=== PATIENT | female | born 1945 | race Caucasian/White ===

== ENCOUNTER → 2019-02-27 17:15 | Outpatient (CLI) | payer MEDICARE, SELFPAY ==
--- NOTE | 2019-02-27 17:15 | FLU_PTH ---
PATIENT: PALLAVI MAGAÑA LOC: [facility] U#:[id number] AGE/SX: 79/F ROOM: RE02/27/[address]: Dr. Esequiel Valadez MD : 1945 BED: DIS: SPEC #: [id number] RECD: 02/27/19 18:54 STATUS: VANESA CHARLENE #: [id number] JOSE DANIEL: 02/27/19 17:[address]: Esequiel Valadez DEPT: CYTOLOGY RECD BY: Gali Velez Tissues: Thyroid gland, NOS Procedures: Special Stain Group II Surgery Specimen Level IV Cytospin Fluid HEADER OPERATION: FNA thyroid PRE-OP DIAGNOSIS: Nontoxic multinodular goiter TISSUE SUBMITTED: Right neck mass FNA DIAGNOSIS CYTOLOGY Right thyroid, FNA (cytospin and cell block): Consistent with benign colloid nodule. Adequate for evaluation. See comment. RADHA:catie 03/01/19 COMMENT Correlation with clinical, radiologic findings and appropriate follow up are necessary. CYTOLOGY STUDY Slides are reviewed. CYTOLOGY GROSS Received is 35 ml of hazy red fluid labeled with the patient's name and and designated per the requisition as right neck mass. Submitted for cytology preparation including cell block. /CC:cc 02/28/19 TC:5 CPT: 13322, 75076
== END ==
PROVIDERS: Family Provider Otolaryngology; PCP Otolaryngology; Referring Provider Otolaryngology; Visit Provider Otolaryngology
DX: E04.2 Nontoxic multinodular goiter (principal)
CPT/HCPCS: 88108; 88305; 88313

== ENCOUNTER → 2020-12-20 15:07 | Outpatient (CLI) | payer MEDICARE, SELFPAY ==
--- NOTE | 2020-12-20 15:19 | RAD_ITS ---
HISTORY: SPONDLOPATHIES EXAMINATION/TECHNIQUE: XR Pelvis 1 or 2 Views: AP pelvis COMPARISON: 2 view lumbar spine on same day FINDINGS: PELVIC BONES: No displaced fracture, destructive or sclerotic lesions. Note that overlapping bowel shadows may however obscure fine detail. Sacroiliac joints are unremarkable, without erosion or ankylosis. No widening of the pubic symphisis. Mild pubic symphysis degenerative change. Multilevel lower lumbar facet arthropathy, better assessed on lumbar spine radiograph. HIPS: Joint spacing is preserved. No significant osseous proliferation. No displaced femoral fracture SOFT TISSUES: No soft tissue swelling or gas. RAD/Pelvis 1 or 2 Views IMPRESSION: Mild pubic symphysis degenerative change. Multilevel lower lumbar facet arthropathy. No evidence of sacroiliitis or ankylosis at 2156 Reported and signed by: Bryan Rodney MD Electronically Signed: Bryan Rodney MD at 21:55 EDT Tel , Service support ,
--- NOTE | 2020-12-20 15:19 | RAD_ITS ---
STUDY: X-RAY - LUMBAR SPINE REASON FOR EXAM: Female, 75 years old. SPONDYLOPATHIES TECHNIQUE: 3 view(s) of the lumbar spine were obtained. COMPARISON: None FINDINGS: There is straightening of the normal lumbar lordosis. There is no substantial scoliosis. Grade 1 anterolisthesis of L2-L3, L3-L4 (dominant) and L4-L5 due to multilevel facet arthropathy. There is multilevel endplate spondylosis of the lumbar vertebrae. There is multi-level degenerative disc disease with multi-level disc space narrowing. There is no demonstrated fracture. There is atherosclerotic calcification of the abdominal aorta without a demonstrated aneurysm. RAD/Lumbar Spine 2 or 3 Views IMPRESSION: 1. Degenerative disc disease and facet arthropathy, as above. Electronically Signed: Luc Nj MD (Brooks) at 16:01 EDT , Service support ,
[2020-12-20 16:09] LABS: Absolute Lymphocyte Count 2.26 X10^3/uL (0.83-4.51); Absolute Neutrophil Count 5.3 X10^3/uL (2.0-7.7); Basophil# 0.04 X10^3/uL; Basophil% 0.5 % (0-1); Eosinophil# 0.31 X10^3/uL; Eosinophils% 3.6 % (0-5); Hemoglobin 12.2 g/dL (12.0-15.0); Lymphocyte # 2.26 X10^3/ul (0.83-4.51); Lymphocyte % 26.5 % (19-41); Mean Corp Hgb Conc 31.3 g/dL (32-36); Mean Corpuscular Hgb 29.5 pg (27.0-32.0); Mean Corpuscular Volume 94.4 fL (81-99); Mean Platelet Vol. 10.3 fl (6.2-12.0); Monocyte# 0.64 X10^3/uL; Monocyte% 7.5 % (0-10); NRBC Flagged by Analyzer 0 % (0-5); Neutrophil # 5.27 X10^3/uL (2.7-7.7); Neutrophil % 61.7 % (47-70); Platelet Count 329 K/mm3 (150-450); RBC Distribution Width CV 12.4 % (11.6-14.6); RBC Distribution Width SD 42.8 fl (35.1-43.9); Red Blood Count 4.13 M/mm3 (4.2-5.4); White Blood Count 8.5 K/mm3 (4.4-11.0)
[2020-12-20 16:23] LABS: Erythrocyte Sedimentation Rate 11 mm/hr (0-30)
[2020-12-20 16:50] LABS: ALB/GLOB Ratio 1.1 RATIO (0.9-2.4); AST(SGOT) 19 U/L (15-37); Alanine Aminotransfer ALT/SGPT 29 U/L (13-56); Albumin, Serum 3.8 g/dL (3.2-5.0); Alkaline Phosphatase 56 U/L (45-117); Anion Gap 6 (5-15); BUN 17 mg/dL (7-18); BUN/Creat Ratio 20.8 RATIO (10-20); CRP < 2.90 mg/L (0.0-3.0); Calcium,Total 9.4 mg/dL (8.5-10.1); Chloride 102 mmol/L (98-107); Creatinine, Serum 0.82 mg/dL (0.55-1.02); EST Glomerular Filtration Rate 72 mL/min (>60); Est Glom Filt Rate - Afr Amer 88 mL/min (>60); Globulin 3.5 g/dL (2.2-4.2); Glucose 121 mg/dL (74-106); Potassium 3.9 mmol/L (3.5-5.1); Protein, Total 7.3 g/dL (6.4-8.2); Rheumatoid Factor < 10.0 IU/mL (<15); Sodium Level 137 mmol/L (136-145)
[2020-12-24 09:23] LABS: Hepatitis B Surface Antibody Non-Reactive; Hepatitis B Surface Antigen Non-Reactive (Nonreactive); Hepatitis C Antibody Non-Reactive (Nonreactive)
[2020-12-24 13:00] LABS: ANTINUCLEAR ANTIBODIES DIRECT Negative (Negative)
[2020-12-30 16:54] LABS: CCP IgG Antibodies 5 units (0-19); HLA B27 Negative (.)
== END ==
PROVIDERS: PCP Nurse Practitioner Primary Care; Referring Provider Internal Medicine Rheumatology; Visit Provider Internal Medicine Rheumatology
DX: M46.90 Unspecified inflammatory spondylopathy, site unspecified (principal); M47.897 Other spondylosis, lumbosacral region; E11.9 Type 2 diabetes mellitus without complications; I10 Essential (primary) hypertension; E78.5 Hyperlipidemia, unspecified; E04.2 Nontoxic multinodular goiter
CPT/HCPCS: 36415; 72100; 72170; 80053; 81374; 85025; 85652; 86038; 86140; 86200; 86431; 86706; 86803; 87340

== ENCOUNTER → 2020-12-30 10:26 | Outpatient (CLI) | payer MEDICARE, SELFPAY ==
--- NOTE | 2020-12-30 10:30 | RAD_ITS ---
STUDY: X-RAY CHEST REASON FOR EXAM: Female, 75 years old. INTERMEDIATE DRUG THERAPY TECHNIQUE: PA and lateral views of the chest. COMPARISON: None. FINDINGS: The lungs are clear and expanded. There is no demonstrated pleural abnormality. There is mild cardiac enlargement. Normal mediastinum and dana. Normal visualized pulmonary arteries. There is atherosclerotic tortuosity of the aortic arch and descending thoracic aorta. There is demineralization of the osseous structures. Normal visualized ribs, clavicles, and shoulders. There is no demonstrated abnormality of the visualized soft tissue structures of the upper abdomen. RAD/Chest PA and Lateral IMPRESSION: Mild degree of cardiomegaly. No acute abnormality is seen. Electronically Signed: Pankaj Jean MD at 13:27 EDT , Service support ,
[2021-01-03 05:07] LABS: QNTFERON TB Mitogen Value > 10.00 IU/mL (.); QNTFERON TB Nil Value 0.08 IU/mL (.); QNTFERON TB1+ Ag Value 0.12 IU/mL (.); QNTFERON TB2+ Ag Value 0.13 IU/mL (.)
[2021-01-03 08:35] LABS: QNTIFERON TB Positive Criteria Negative (Negative)
== END ==
LOC: RAD 10:28 → LAB 11:02
PROVIDERS: PCP Nurse Practitioner Primary Care; Referring Provider Internal Medicine Rheumatology; Visit Provider Internal Medicine Rheumatology
DX: M46.90 Unspecified inflammatory spondylopathy, site unspecified (principal); M47.897 Other spondylosis, lumbosacral region; E11.9 Type 2 diabetes mellitus without complications; I10 Essential (primary) hypertension; E78.5 Hyperlipidemia, unspecified; E04.2 Nontoxic multinodular goiter
CPT/HCPCS: 36415; 71046; 86480

== ENCOUNTER 2022-10-24 15:35 | Inpatient (IN) | payer MEDICARE, SELFPAY ==
[2022-10-24] VITALS (20 sets, daily range): BP systolic 76–163; BP diastolic 48–96; PULSE 45–93; RESP 16–31; TEMP 36.4–37; O2SAT 92–99; BMI 30.4; BMI 29.5
[2022-10-24] MEDS: 0.9% Normal Saline 1,000 ML 999 ML IV (15:40)
[2022-10-24] MEDS: TICAGRELOR 90 MG TABLET 180 MG PO (15:42)
--- NOTE | 2022-10-24 15:42 | EKG12_ITS ---
Test Reason : CP Blood Pressure : / mmHG Vent. Rate : 048 BPM Atrial Rate : 048 BPM P-R Int : 432 ms QRS Dur : 110 ms QT Int : 496 ms P-R-T Axes : 046 015 090 degrees QTc Int : 443 ms Sinus bradycardia with 1st degree A-V block Minimal voltage criteria for LVH, may be normal variant ( Gorham product ) Inferior infarct , possibly acute T wave abnormality, consider lateral ischemia ACUTE SD / STEMI Consider right ventricular involvement in acute inferior infarct Abnormal ECG Confirmed by JEOVANNY ALFONSO, LYUBOV ([id number]), scientific publications editor SABINO HERRON ([id number]) on 10/26/2022 11:06:44 A M Referred By: Lisa Oliva Confirmed By:ANYI OLIVA MD
--- NOTE | 2022-10-24 15:44 | EDS_ITS ---
HPI History of Present Illness Chief Complaint: Chest Pain Informant: patient Narrative Narrative: Patient presents with some chest discomfort and just not feeling well. This started about 220 this afternoon so about an hour and 15 minutes ago. She states she just did not feel well. She felt just weak and tired. She states her left arm did not feel right. But it was not weak or numb. She does not say that it hurt. But she did have some pressure or heaviness in the upper chest. It was not bad but it was abnormal. Per EMS she was diaphoretic when they first saw her. She has never felt like this before. She is feeling a little bit better now than when she first called EMS. She did receive 4 baby aspirin prior to arrival. She has not had recent bleeding. She has no back pain. She has not been syncopal Patient has history of high blood pressure high cholesterol and diabetes. No known drug allergies Medicines include metoprolol, lisinopril, metformin, glimepiride. It sounds like she is not on actual meds for cholesterol. No recent surgeries, never had heart catheterization or stents. Non-smoker [facility] Medical History (Updated 10/24/22 @ 16:[address] Robert Coleman MD) Diabetes Hypertension Home Medications glipizide 10 mg tablet 10 mg PO DAILY DM 10/24/22 [History Last Taken Unknown] lisinopril 20 mg tablet 20 mg PO DAILY HTN 10/24/22 [History Last Taken Unknown] metformin 500 mg tablet 500 mg PO BID DM 10/24/22 [History Last Taken Unknown] metoprolol tartrate 50 mg tablet 50 mg PO BID HTN 10/24/22 [History Last Taken Unknown] Allergy/AdvReac Type Severity Reaction Status Date / Time No Known Allergies Allergy Verified 10/24/22 15:44 Social History Smoking Status: Never smoker ROS ROS ED ROS Narrative A complete review of systems was performed and is negative except as documented in the history of present illness. Some specific details below. Constitutional: No recent fevers or chills. She does have some generalized weakness and malaise that just started this afternoon. EYE: No discharge, visual complaints, or pain. ENT: No difficulty swallowing. No reflux symptoms. CV: See history of present illness. Respiratory: See history of present illness. GI: No abdominal pain. No nausea vomiting diarrhea. No blood in stool. : No frequency dysuria or hematuria. Musculoskeletal: No recent trauma. No pains. No swelling. No back pain. Skin: No rash. Nondiaphoretic. Neuro: No weakness or numbness. Endocrine: No polyuria or polydipsia. EXAM Physical Exam Narrative Exam Narrative: CONSTITUTIONAL: Patient is nontoxic in appearance. The patient looks comfortable. Work of breathing looks normal. HEENT: No notable trauma. Mucous membranes moist. No facial asymmetry. Patient can close eyes smile stick her tongue out normally. EYES: No conjunctival injection. No proptosis. NECK:No JVD. No stridor. CARDIOVASCULAR: Mildly bradycardic rate. Regular rhythm. No notable murmur. No JVD. However, her blood pressure is good. On the monitor she appears to be in a normal sinus rhythm with bradycardia at about 48-55. There are ST changes on the monitor also. RESPIRATORY: No respiratory distress. Breathing is unlabored. No wheezes. No rhonchi. No rales. No pain with a deep breath. No chest wall tenderness. Saturations are normal at 96% on room air showing no hypoxia. GASTROINTESTINAL: Not distended. Bowel sounds are normal. No tenderness. GENITOURINARY: No tenderness over the bladder. No CVA tenderness. MUSCULOSKELETAL: Atraumatic. No peripheral edema. No cord. No tenderness along the deep venous system. No asymmetry. No distended veins. NEUROLOGICAL: Patient is alert and appropriate. No focal deficit noted. Normal equal strength upper and lower extremities. No sensory changes. Her NIH is actually 0. We are little cautious because she states her left arm just did not feel right and could not define this but I am not seeing any indication of neurologic deficit in this area. SKIN: No noted rashes. No diaphoresis noted at this time but she evidently was diaphoretic when EMS saw her. PSYCHIATRIC: Patient is calm. Mood is appropriate. Const Vital Signs: 10/24/22 15:36 10/24/22 15:40 10/24/22 15:46 Temperature 98.6 F Temperature Source Temporal Pulse Rate 48 L Respiratory Rate 18 18 Blood Pressure 124/96 H 124/96 H Blood Pressure Mean 105 Pulse Ox 96 Oxygen Delivery Method Room Air Nasal Cannula Oxygen Flow Rate (L/min) 2 10/24/22 15:53 10/24/22 15:58 Temperature Temperature Source Pulse Rate 45 L 47 L Respiratory Rate 19 H 16 Blood Pressure 76/48 L 92/81 H Blood Pressure Mean 57 84 Pulse Ox 97 99 Oxygen Delivery Method Nasal Cannula Nasal Cannula Oxygen Flow Rate (L/min) 2 MDM MDM MDM Narrative Medical decision making narrative: Prior to the patient's arrival, we had received a EMS EKG. Based on this EKG we did initiate STEMI team. Dr. Oliva called back promptly. He then came down to see the patient in the emergency department. We are waiting for the cath team to arrive. Plan will be to get her up there. She has already received aspirin. We are giving her Brilinta and heparin. We are doing metabolic work- up but this is pending at this time. Patient CBC is overall normal. Patient's electrolytes are normal. Patient's INR and PTT are normal. Patient's troponin was elevated at 483. My independent interpretation the patient's single view chest x-ray showed no marked process. Mild shallow inspiration. Findings consistent with her prior lumbar surgery. Final read was showing Mild right infrahilar atelectasis or infiltrate. The infiltrate does not go along with her symptoms. We are waiting for cath team to arrive. Patient did have some bradycardic episodes and dropped her pressure once but they responded to fluids. She is maintained being awake and alert. She looks comfortable. I been back in the room multiple times. Toward the end I stayed in the room with her pending cath team arrival. I had seen a couple episodes of ectopy on the monitor. She had one 3 beat V. tach that I think was true V. tach but spontaneously resolved. She did not have symptoms with this. I actually went down to [employer] with her until she was transferred to the table. I then talked to the stull installer at their to update some the interval events. History & Record Review Discussion w/independent historian: EMS personnel Lab Data Labs: Laboratory Results - last 24 hr 10/24/22 15:40 WBC 9.7 RBC 4.20 Hgb 12.5 Hct 39.8 MCV 94.8 MCH 29.8 MCHC 31.4 L RDW Std Deviation 42.7 RDW Coeff of Ron 12.5 Plt Count 417 MPV 11.2 Immature Gran % (Auto) 0.200 Neut % (Auto) 65.6 Lymph % (Auto) 24.8 [place] % (Auto) 7.5 Eos % (Auto) 1.4 Baso % (Auto) 0.5 Absolute Neuts (auto) 6.4 Absolute Lymphs (auto) 2.41 Nucleated RBC % 0 PT 13.7 INR 1.0 APTT 30.4 Sodium 136 Potassium 4.4 Chloride 104 Carbon Dioxide 24.0 Anion Gap 8 BUN 27 H Creatinine 1.75 H Estim Creat Clear Calc 19.03 Est GFR (MDRD) Af Amer 36 L Est GFR (MDRD) Non-Af 30 L BUN/Creatinine Ratio 15.4 Glucose 391 H Calcium 8.9 Troponin I High Sens 483 H* Radiography Diagnostic Testing: Clinical Impression(s) from Imaging Studies Chest X-Ray 10/24/22 15:55 IMPRESSION: Mild right infrahilar atelectasis or infiltrate Electronically Signed: Edward Molina MD at 16:25 EDT , EKG Initial EKG: Comments: I individual interpretation of the patient's EKG done for chest discomfort shows a sinus rhythm with overall bradycardic rate and significant first-degree block with a rate of 48. It may be that she has a second-degree block as I am suspicious there may be other P waves buried in the QRS complex. But at this time she is comfortable and her blood pressure is good. This would not be an uncommon phenomenon with inferior IA. I do not have an old for comparison at this time. Critical Care Time Critical care time (excluding procedures): 30-74 minutes, Discussing w/Patient &/or Family/Acid Strength Inspector, Discussing w/Consultants, Arranging Admission or Transfer, Performing Direct Patient Care at Bedside and - (42 minutes, see note for details.) Discharge Plan Dx/Rx/DC Orders Clinical Impression: Bradycardia, STEMI (ST elevation myocardial infarction), Elevated troponin, Hypotensive episode Disposition Disposition: Acute Care [facility] Discharge Date/Time: 10/24/22 16:00
--- NOTE | 2022-10-24 15:55 | RAD_ITS ---
STUDY: X-RAY CHEST REASON FOR EXAM: Female, 77 years old. Chest pain TECHNIQUE: AP portable COMPARISON: December 31, 2019 FINDINGS: Mild right infrahilar infiltrate or atelectasis. There is no demonstrated pleural abnormality. Normal size heart. Normal mediastinum and dana. Normal visualized pulmonary arteries. Tortuous aortic arch and descending thoracic aorta. Normal visualized thoracic spine. Normal visualized clavicles, and shoulders. Old healed left rib fracture Postsurgical changes of the lumbar spine RAD/Chest 1 View (Portable) IMPRESSION: Mild right infrahilar atelectasis or infiltrate Electronically Signed: Edward Molina MD at 16:25 EDT ,
[2022-10-24 15:57] LABS: Absolute Lymphocyte Count 2.41 X10^3/uL (0.83-4.51); Absolute Neutrophil Count 6.4 X10^3/uL (2.0-7.7); Basophil# 0.05 X10^3/uL; Basophil% 0.5 % (0-1); Eosinophil# 0.14 X10^3/uL; Eosinophils% 1.4 % (0-5); Hematocrit 39.8 % (37-47); Hemoglobin 12.5 g/dL (12.0-15.0); Lymphocyte # 2.41 X10^3/ul (0.83-4.51); Lymphocyte % 24.8 % (19-41); Mean Corp Hgb Conc 31.4 g/dL (32-36); Mean Corpuscular Hgb 29.8 pg (27.0-32.0); Mean Corpuscular Volume 94.8 fL (81-99); Mean Platelet Vol. 11.2 fl (6.2-12.0); Monocyte# 0.73 X10^3/uL; Monocyte% 7.5 % (0-10); NRBC Flagged by Analyzer 0 % (0-5); Neutrophil # 6.37 X10^3/uL (2.7-7.7); Neutrophil % 65.6 % (47-70); Platelet Count 417 K/mm3 (150-450); RBC Distribution Width CV 12.5 % (11.6-14.6); RBC Distribution Width SD 42.7 fl (35.1-43.9); White Blood Count 9.7 K/mm3 (4.4-11.0)
[2022-10-24] MEDS: Heparin Injection (Vial) 5,000 UNIT/ML VIAL 4000 UNIT IV (15:57)
[2022-10-24 16:07] LABS: Prothrombin Time (Protime)PT. 13.7 SECONDS (11.7-14.9)
--- NOTE | 2022-10-24 16:07 | PCM.HP.STD ---
HPI - General General Date of Admission: 10/24/22 Date of Service: 10/24/22 Chief Complaint: Chest pain HPI Narrative PALLAVI MAGAÑA, is a 77 F who presented to the emergency department at [facility] complaining of chest pain and not feeling well. It started at 1420 this afternoon and then again at about 15 minutes prior to presentation. She felt weak and tired and indicated that she had left arm symptoms. She complained of chest pressure/heaviness in the upper chest area. Per EMS she was diaphoretic when they arrived. She never had symptoms like this previously. She received 4 baby aspirin's prior to arrival. EMS EKG was performed and initiated a STEMI team. She was given Brilinta and heparin in the emergency department. She was taken emergently to the [facility] where Vital signs on presentation showed a temperature of 98.6, heart rate 48, blood pressure 124/96, respiratory rate 18 and oxygen saturations were 96% on room air. CBC was unremarkable. Coags are normal. Chemistry panel showed normal electrolytes however BUN and serum creatinine were elevated at 27 and 1.75 respectively baseline is unknown. Serum glucose was 291 and initial troponin was 483. This x-ray showed a mild right infrahilar atelectasis or infiltrate. [facility] Medical History (Updated 10/24/22 @ 18:[address] Mia Patel DO) Diabetes Hyperlipidemia Hypertension Home Medications glipizide 10 mg tablet 10 mg PO DAILY DM 10/24/22 [History Last Taken Unknown] lisinopril 20 mg tablet 20 mg PO DAILY HTN 10/24/22 [History Last Taken Unknown] metformin 500 mg tablet 500 mg PO BID DM 10/24/22 [History Last Taken Unknown] metoprolol tartrate 50 mg tablet 50 mg PO BID HTN 10/24/22 [History Last Taken Unknown] Allergy/AdvReac Type Severity Reaction Status Date / Time No Known Allergies Allergy Verified 10/24/22 15:44 Family History (Updated 10/24/22 @ 18:[address] Mia Patel DO) Other CAD (coronary artery disease) Colon cancer Diabetes Heart disease Hypertension Surgical History (Updated 10/24/22 @ 18:[address] Mia Patel DO) H/O lumbosacral spine surgery History of cataract surgery Social History (Updated 10/24/22 @ 18:[address] Mia Patel DO) household members: family housing: house Smoking Status: Never smoker alcohol intake: never substance use type: does not use ROS Constitutional Constitutional: Reports fatigue and weakness; Denies anorexia, change in weight, chills, fever(s), malaise, night sweats or other Eyes Eyes: Denies blurry vision, change in eye color, change in vision, discharge from eye(s), double vision, erythema, eye pain, loss of vision or other ENT HEENT: Denies abnormal hearing, dysphagia, ear pain, epistaxis, headache(s), hearing loss, nasal congestion, nasal discharge, post nasal drip, sinus pressure, sore throat or other Cardiovascular Cardiovascular: Reports chest pain; Denies claudication, dyspnea on exertion, edema, lightheadedness, orthopnea, palpitations, paroxysmal nocturnal dyspnea, rapid heart rate, syncope or other Respiratory/Chest Respiratory/Chest: Denies cough, dyspnea, excessive phlegm production, hemoptysis, productive cough, shortness of breath at rest, shortness of breath with exertion, wheezing or other Gastrointestinal Gastrointestinal: Denies abdominal pain, coffee ground emesis, constipation, diarrhea, dyspepsia, hematemesis, hematochezia, loose stools, melena, nausea, vomiting or other Genitourinary Genitourinary: Denies burning urination, difficulty urinating, dysuria, hematuria, nocturia, urinary frequency, urinary hesitancy, urinary incontinence, urinary urgency or other Musculoskeletal Musculoskeletal: Reports back pain; Denies arthralgias, joint pain, joint stiffness, joint swelling, myalgias, neck pain or other Neurologic Neurologic: Denies abnormal gait, abnormal speech, confusion, disequilibrium, dizziness, focal weakness, headache(s), numbness, paresthesias, seizure-like activity, seizures, syncope, tingling, tremor(s) or other Psychiatric Psychiatric: Denies anxiety, depression, homicidal ideation, suicidal ideation or other Endocrine Endocrinology: Denies change in body appearance, cold intolerance, excessive sweating, heat intolerance, polydipsia, polyuria or other Hematologic/Lymphatic Hematologic/Lymphatic: Denies anemia, easy bleeding, easy bruising, lymphadenopathy or other Allergic/Immunologic Allergic/Immunologic: Denies rhinitis, hives, eczemia, asthma or other Vital Signs Vital Signs Vital Signs: 10/24/22 15:36 10/24/22 15:40 10/24/22 15:46 Temperature 98.6 F Temperature Source Temporal Pulse Rate 48 L Respiratory Rate 18 18 Blood Pressure 124/96 H 124/96 H Blood Pressure Mean 105 Pulse Ox 96 Oxygen Delivery Method Room Air Nasal Cannula Oxygen Flow Rate (L/min) 2 10/24/22 15:53 10/24/22 15:58 Temperature Temperature Source Pulse Rate 45 L 47 L Respiratory Rate 19 H 16 Blood Pressure 76/48 L 92/81 H Blood Pressure Mean 57 84 Pulse Ox 97 99 Oxygen Delivery Method Nasal Cannula Nasal Cannula Oxygen Flow Rate (L/min) 2 Weight Weight: 70.6 kg Body Mass Index (BMI) 30.4 Physical Exam Const alert, oriented x3, no apparent distress and well nourished Constitutional Narrative: Older white female, overweight, sitting up in bed, sister is at bedside, patient appears comfortable and nontoxic General Appearance: cooperative HEENT normocephalic, head/scalp atraumatic and hearing grossly normal bilaterally HEENT Narrative: Dentures in place, Mallampati 2, no thrush Resp normal respiratory effort, no retractions, no use of accessory muscles and clear to auscultation bilaterally Auscultation: Negative for rales, rhonchi or wheezes Cardio regular rate, regular rhythm, S1 normal heart sound, S2 normal heart sound, no murmurs, no rub, no gallops and no clicks Cardio Narrative: Some ectopy noted GI normal to inspection, nondistended, normoactive bowel sounds, soft to palpation and non-tender Extremity no clubbing, cyanosis or edema Extremity Narrative: Needle pulses are 2+ Skin Skin Narrative: Right radial compression device post catheterization in place, some blood noted surrounding it but no active bleeding Neuro oriented x3, CN's II-XII intact bilaterally, moves all extremities and no focal motor deficits Neuro Narrative: No sensory changes, very minimal proximal weakness but distal strength is good, right wrist and elbow strength not assessed due to catheterization Sensorium / Orientation: awake, alert, oriented to person, oriented to place and oriented to time Speech: speech normal Psych affect normal Psych Narrative: Pleasant, eye contact is good, patient is appropriate Results Lab / Micro Data 10/24/22 15:40 10/24/22 15:40 Labs: Laboratory Results - last 24 hr 10/24/22 15:40: WBC 9.7, RBC 4.20, Hgb 12.5, Hct 39.8, MCV 94.8, MCH 29.8, MCHC 31.4 L, RDW Std Deviation 42.7, RDW Coeff of Ron 12.5, Plt Count 417, MPV 11.2, Immature Gran % (Auto) 0.200, Neut % (Auto) 65.6, Lymph % (Auto) 24.8, [place] % (Auto) 7.5, Eos % (Auto) 1.4, Baso % (Auto) 0.5, Absolute Neuts (auto) 6.4, Absolute Lymphs (auto) 2.41, Nucleated RBC % 0 Assessment & Plan Assessment/Plan (1) STEMI (ST elevation myocardial infarction): (2) Elevated serum creatinine: (3) Hyperglycemia: (4) Elevated troponin: (5) Bradycardia: PLAN: Plan STEMI -Patient taken emergently to the [facility] and 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 twice daily -Cardiology following-appreciate input Bradycardia -Likely related to RCA obstruction -Resolved -Monitor on telemetry Elevated serum creatinine -Baseline serum creatinine is unknown -Aggressive hydration post cath to flush out contrast to avoid contrast-induced nephropathy -Okay to continue his lisinopril for now but may need to hold if creatinine does not improve tomorrow DM-2 with hyperglycemia -Check hemoglobin A1c -Markedly elevated blood glucose on presentation at 391 however this may be related to stress response -Continue to monitor with Accu-Cheks as ordered -Patient is on glipizide 10 mg daily and metformin 500 mg p.o. twice daily at home -Hold oral agents -Sliding scale -Cardiac/carb controlled diet Hypertension -Patient is on lisinopril and metoprolol at baseline however hypotensive on presentation -Reinitiate blood pressure medications as blood pressure and heart rate allows DVT prophylaxis -Lovenox to start tomorrow CODE STATUS -Full code is verified on admission Charges/Coding Visit Charges Inpatient E&M: 50304 Init Hosp L2
[2022-10-24 16:08] LABS: Partial Thromboplast Time 30.4 Seconds (24.1-36.2)
--- NOTE | 2022-10-24 16:13 | ED.RN ---
[facility] gave 324 ASA at 1417
[2022-10-24 16:32] LABS: Anion Gap 8 (5-15); BUN 27 mg/dL (7-18); BUN/Creat Ratio 15.4 RATIO (10-20); Calcium,Total 8.9 mg/dL (8.5-10.1); Chloride 104 mmol/L (98-107); Creatinine, Serum 1.75 mg/dL (0.55-1.02); EST Glomerular Filtration Rate 30 mL/min (>60); Est Glom Filt Rate - Afr Amer 36 mL/min (>60); Estimated Creatinine Clearance 19.03 ml/min; Glucose 391 mg/dL (74-106); Potassium 4.4 mmol/L (3.5-5.1); Sodium Level 136 mmol/L (136-145); Troponin-I HS 483 pg/mL (3.0-54.0)
--- NOTE | 2022-10-24 16:44 | ECHOD_ITS ---
Reason For Study: S/P OH Procedure This was a 2D Doppler, Color Flow transthoracic echocardiogram. Exam performed portable in patient room. Left Ventricle Normal LV size. Mild concentric left ventricular hypertrophy. The estimated ejection fraction is 45 %. Mild segmental systolic dysfunction (see wall motion). Mid-Inferior: Hypokinetic. Basal inferoseptal: Severely Hypokinetic. Infero-Basal: Akinetic. Mid-Posterior: Hypokinetic. Right Ventricle Normal RV size. Normal systolic function. Mitral Valve Bileaflet diffuse mitral valve thickening. Moderate (2+) eccentric mitral valve insufficiency. Tricuspid Valve Normal tricuspid valve. Aortic Valve Trisinus/trileaflet aortic valve. Pulmonic Valve Normal pulmonic valve. Great Vessels Normal aortic root. The pulmonary artery is normal size. Normal inferior vena cava. Pericardium/Pleural No pericardial effusion. MMode/2D Measurements & Calculations LVIDd: 4.7 cm IVSd: 1.4 cm Ao root diam: 3.7 cm LVIDs: 3.8 cm LVPWd: 1.2 cm RVDd: 3.0 cm FS: 19.5 % LAV(MOD-bp): 58.6 ml LVAd ap4: 25.0 cm2 SV(MOD-sp4): 31.5 ml LAV(MOD-bp) Indexed: 36.3 ml/m2 LVLd ap4: 7.4 cm LAV(MOD-sp2): 63.2 ml EDV(MOD-sp4): 70.6 ml LAV(MOD-sp4): 53.1 ml EDV(sp4-el): 72.0 ml LVAs ap4: 16.5 cm2 LVLs ap4: 6.0 cm ESV(MOD-sp4): 39.2 ml ESV(sp4-el): 38.8 ml EF(MOD-sp4): 44.5 % EF(sp4-el): 46.2 % SV(sp4-el): 33.3 ml LA dimension(2D): 3.5 cm LA A4 area: 20.5 cm2 RA A4 area: 12.4 cm2 TAPSE: 2.3 cm Time Measurements MV dec time: 0.20 sec Doppler Measurements & Calculations MV E max reg: 93.3 cm/sec Lat Peak E' Reg: 8.4 cm/sec Med Peak E' Reg: 3.7 cm/sec MV A max reg: 91.0 cm/sec E/E' lat: 11.1 E/E' med: 24.9 MV E/A: 1.0 MV V2 max: 100.7 cm/sec Ao V2 max: 144.2 cm/sec MV max P.1 mmHg MV dec slope: 462.9 cm/sec2 Ao max P.4 mmHg MV V2 mean: 55.3 cm/sec Ao V2 mean: 90.1 cm/sec MV mean P.5 mmHg Ao mean P.9 mmHg MV V2 VTI: 32.1 cm Ao V2 VTI: 30.9 cm AV (velocity ratio): 0.88 LV V1 max: 119.1 cm/sec MR max reg: 619.9 cm/sec PA V2 max: 92.2 cm/sec LV V1 max P.7 mmHg MR max P.7 mmHg PA V2 mean: 74.0 cm/sec LV V1 mean P.0 mmHg MR mean reg: 481.0 cm/sec LV V1 mean: 80.2 cm/sec MR mean P.5 mmHg LV V1 VTI: 27.3 cm MR VTI: 241.6 cm ECHO/Echo Complete Interpretation Summary Normal LV size. The estimated ejection fraction is 45 %. Mild segmental systolic dysfunction (see wall motion). Mild concentric left ventricular hypertrophy. Moderate (2+) eccentric mitral valve insufficiency. Ordering Physician: Lisa Oliva Referring Physician: Lisa Oliva Performed By: Naheed Martines RCS
--- NOTE | 2022-10-24 16:45 | CON.PCM.CA_ITS ---
Assessment & Plan Assessment/Plan (1) STEMI (ST elevation myocardial infarction): QUALIFIERS: Involved coronary artery: right coronary artery Qualified Code(s): I21.11 - ST elevation (STEMI) myocardial infarction involving right coronary artery PLAN: Treated with drug-eluting stent to the RCA. We will keep the patient on aspirin, Brilinta, statin. She is already on lisinopril and beta-renate that will be continued. We will hold the metformin for 48 hours. 2D echo to be checked on Wednesday. Patient is being admitted to the CCU for further management of her inferior STEMI. HPI Consult Data Date of Consult: 10/24/22 HPI Narrative Reason for Consultation: STEMI HPI Narrative: PALLAVI MAGAÑA, is a 77 F who presents with chest pressure and because she was just not feeling right. EKG done outside the hospital with the paramedics revealed inferior STEMI and a STEMI alert was called. Patient was evaluated in the emergency room and was brought emergently to the cardiac Social Sciences Chair. She underwent coronary angiography which revealed 99% stenosis in the mid RCA that was treated with drug-eluting stents. Patient is doing well at the end of the procedure. Review of systems: All systems reviewed. All else is negative except as in HPI PFSH Medical History (Updated 10/24/22 @ 16:[address] Lisa Oliva MD) Diabetes Hypertension Home Medications glipizide 10 mg tablet 10 mg PO DAILY DM 10/24/22 [History Last Taken Unknown] lisinopril 20 mg tablet 20 mg PO DAILY HTN 10/24/22 [History Last Taken Unknown] metformin 500 mg tablet 500 mg PO BID DM 10/24/22 [History Last Taken Unknown] metoprolol tartrate 50 mg tablet 50 mg PO BID HTN 10/24/22 [History Last Taken Unknown] Allergy/AdvReac Type Severity Reaction Status Date / Time No Known Allergies Allergy Verified 10/24/22 15:44 Social History Smoking Status: Never smoker Physical Exam Const alert and oriented x3 HEENT normocephalic Eyes no scleral icterus Resp normal respiratory effort Cardio regular rate Skin no rashes or lesions noted Psych mental status grossly normal Risk Stratification Risk Stratification Applicable: No Charges/Coding Visit Charges Inpatient E&M: 98767 Init Hosp L2 Objective Data Vital Signs: Vital Signs Temp Pulse Resp BP Pulse Ox O2 Del Method O2 Flow Rate 98.6 F 47 L 16 92/81 H 99 Nasal Cannula 2 10/24/22 15:40 10/24/22 15:58 10/24/22 15:58 10/24/22 15:58 10/24/22 15:58 10/24/22 15:58 10/24/22 15:58 Oxygen Flow Rate (L/min) 2 Oxygen Delivery Method Nasal Cannula Weight: 155 lb 10.342 oz Body Mass Index (BMI) 30.4 Lab / Micro Data 10/24/22 15:40 10/24/22 15:40 Labs: Laboratory Results - last 24 hr 10/24/22 15:40: WBC 9.7, RBC 4.20, Hgb 12.5, Hct 39.8, MCV 94.8, MCH 29.8, MCHC 31.4 L, RDW Std Deviation 42.7, RDW Coeff of Ron 12.5, Plt Count 417, MPV 11.2, Immature Gran % (Auto) 0.200, Neut % (Auto) 65.6, Lymph % (Auto) 24.8, Mccreary % (Auto) 7.5, Eos % (Auto) 1.4, Baso % (Auto) 0.5, Absolute Neuts (auto) 6.4, Absolute Lymphs (auto) 2.41, Nucleated RBC % 0, PT 13.7, INR 1.0, APTT 30.4, Sodium 136, Potassium 4.4, Chloride 104, Carbon Dioxide 24.0, Anion Gap 8, BUN 27 H, Creatinine 1.75 H, Estim Creat Clear Calc 19.03, Est GFR (MDRD) Af Amer 36 L, Est GFR (MDRD) Non-Af 30 L, BUN/Creatinine Ratio 15.4, Glucose 391 H, Calcium 8.9, Troponin I High Sens 483 H* Cardiology Labs/Tests 10/24/22 15:40: WBC 9.7, RBC 4.20, Hgb 12.5, Hct 39.8, MCV 94.8, MCH 29.8, MCHC 31.4 L, Plt Count 417, MPV 11.2, Immature Gran % (Auto) 0.200, Neut % (Auto) 65.6, Lymph % (Auto) 24.8, Mccreary % (Auto) 7.5, Eos % (Auto) 1.4, Baso % (Auto) 0.5, Absolute Neuts (auto) 6.4, Nucleated RBC % 0, PT 13.7, INR 1.0, APTT 30.4, Sodium 136, Potassium 4.4, Chloride 104, Carbon Dioxide 24.0, Anion Gap 8, BUN 27 H, Creatinine 1.75 H, Est GFR (MDRD) Af Amer 36 L, Est GFR (MDRD) Non-Af 30 L , BUN/Creatinine Ratio 15.4, Glucose 391 H, Calcium 8.9 Rhythm: EKG: ECHO: Stress Test: Cardiac Cath: PCI: CT Surgery: Holter monitor: EPS: PPM: CXR: Chest CT Scan: Radiography Diagnostic Testing: Radiology Impression Chest X-Ray 10/24/22 15:55 IMPRESSION: Mild right infrahilar atelectasis or infiltrate Electronically Signed: Edward Molina MD at 16:25 EDT ,
--- NOTE | 2022-10-24 16:45 | EKG12_ITS ---
Test Reason : AM EKG Blood Pressure : / mmHG Vent. Rate : 061 BPM Atrial Rate : 061 BPM P-R Int : 130 ms QRS Dur : 092 ms QT Int : 482 ms P-R-T Axes : 000 -46 -72 degrees QTc Int : 485 ms Normal sinus rhythm Left axis deviation Inferior infarct , age undetermined ST & T wave abnormality, consider lateral ischemia Abnormal ECG Confirmed by CRISTAL ALFONSO, JULIANO ([id number]), supervising film or videotape editor SABINO HERRON ([id number]) on 10/27/2022 12:21:10 PM Referred By: Lisa Oliva Confirmed By:JULIANO BEE MD
[2022-10-24] MEDS: 0.9% Normal Saline 1,000 ML 75 ML IV (17:00)
--- NOTE | 2022-10-24 17:19 | CL.I_ITS ---
Patient Name: PALLAVI MAGAÑA Study Date: 10/24/2022 Performing: Gary Oliva MD Ht: 60 inches 152.4 cm : 1945 Wt: 155.8 lbs 70.6 kg Age: 77 Gender: female BSA: 1.68 PROCEDURE(S) PERFORMED DC02-(77059)LHC/COR IC16-([id number]/[id number])AMI, RAJANI OR PTCA, ARTERY/GRAFT, SINGLE VESSEL CLINICAL PROFILE AND CO-MORBIDITIES Indications: ACS <= 24 hrs Heart Failure: None Stress/Imaging Stress/Image Study Performed: No CAD Presentations: STEMI. Symptom onset Date/Time: 10/24/22 Time Not Available CONCLUSIONS CAD as described. No significant . Successful PCI of mRCA with RAJANI RECOMMENDATIONS ASA Indefinitley Brilinta for at least 12 months Medical therapy for rest of the CAD at this time DESCRIPTION OF PROCEDURE The patient arrived to the procedure lab. The risks and benefits of the procedure as well as a full description of our services here and lack of surgical backup were fully explained to the patient and/or their significant other prior to the catheterization. The Timeout was completed, verifying the correct patient and procedure. The patient's procedural site was prepped and draped in the usual fashion. Local anesthetic was given subcutaneously to right radial region with Lidocaine 2%. Using a modified Seldinger technique, arterial access was obtained via the right radial artery, a 6Fr sheath was inserted.. LV to AO pullback pressures were then recorded. Left Coronary Artery selective angiography was performed in multiple views using a 5 Fr. JL3.5 catheter JR 4 Guide catheter was inserted and engaged into the RCA. BMW Guide wire was advanced to the RCA. 2.5x12 Emerge Balloon catheter was inserted. Balloon catheter was advanced across lesion in the right coronary, mid. PTCA balloon inflated at 6 atms for 15 secs. Angiogram performed post balloon dilatation. 3.5x18 Resolute Drug Eluting stent was inserted. Drug Eluting stent was advanced across the lesion in the right coronary, mid. Angiogram performed post stent deployment. 3.5x12 Resolute Drug Eluting stent was inserted. Drug Eluting stent was advanced across the lesion in the right coronary, mid. Angiogram performed post stent deployment. The arterial sheath was pulled and a TR Band was applied for hemostasis. 10cc of air CORONARY ANGIOGRAPHY DOMINANCE: Right Dominant LEFT HEART ASSESSMENT LEFT MAIN: 20 % Stenosis in the distal portion LEFT ANTERIOR DESCENDING ARTERY: PROX LAD: 60 % Stenosis, eccentric, calcified CIRCUMFLEX ARTERY: mild diffuse disease. Hazy lesion in the ostial LCx that appears to be mild to moderate. RIGHT CORONARY ARTERY: MID RCA: 99 % Stenosis, 80 % Stenosis VALVE FINDINGS: No Aortic Valve Stenosis INTERVENTION INFORMATION LESION SITE: RCA (Mid) Lesion Complexity: High/C, chronic total occlusion: No, lesion at bifurcation: No, thrombus present: Yes, lesion length: 17 mm, culprit lesion: Yes, Previously treated lesion: No Pre Stenosis: 99 % Pre intervention JESSICA flow: 1 PROCEDURE: Drug Eluting Stent with pre dilatation. Post Stenosis: 0 % Post intervention JESSICA flow: 3 Lesion Devices: Zayas .014 190cm BMW [place] Straight Cordis 6 Fr JR4 100cm Guide Catheter Benjamin Sci EMERGE MR 2.50x12 BALLOON Medtronic Resolute Vanduser RX RAJANI 3.5x18 Medtronic Resolute Isac RX RAJANI 3.5x12 COMPLICATIONS No Complications PROCEDURE MEDICATIONS Versed 1 mg IV Versed 1 mg IV Oxygen: 2 L/min via nasal cannula Heparin given IA 10/24/2022 16:13:22 Verapamil 2.5mg, Ntg 50mcgs, 3000 units of Heparin given IA 10/24/2022 16:13:22 SUMMARY OF HEMODYNAMIC DATA Time AIR REST ECG 16:07:19 AO 113/72 (98) SA 16:13:59 LV 100/4, 9 16:15:00 LV 97/4, 9 16:15:08 LVp 102/0, 12 16:15:16 AOp 97/59 (76) 16:15:23 AO 91/56 (72) 16:15:54 AO 115/64 (88) 16:19:23 Signed By Gary Oliva MD On 10/24/2022 17:18:30 Gary Oliva MD
--- NOTE | 2022-10-24 17:25 | CASEMGMT ---
KENNEDY PANTOJA DEMI CHEF CM to room to meet with patient for initial transition planning/care coordination assessment. RN KIT introduced self and role at [facility].? Pt voices understanding and consents to assessment at this time.? Pt resting in bed in no distress at this time.? Pt is A/O at this time and answers all questions appropriately.?? Care providers, pharmacy, and demographics verified/updated at this time. PCP: VINNIE Camacho Specialists: Dr Bell @ [facility] Preferred Pharmacy: [facility] Insurance: [facility] A/B Prescription Benefit:? Pt is not sure if has RX benefits. Provided w/Brilinta 30-day savings card and instructed on use. Discussed importance of taking med as prescribed and to f/u with cardiology if refills are not affordable to discuss other possible more affordable options. Living Will/HPOA:? Pt thinks she may have done a LW but not sure and does not think she has completed HCPOA LNOK: 5 children Living Arrangements: Lives w/son in 2-story home w/3-4 steps to enter. FFSU. Indep @ baseline w/ADL's. Dtr's assist w/home mgnt tasks/cleaning. Pt usually gets own groceries/family helps as needed. Pt manages her own medications. Transportation: family DME: States has the following DME available: shower chair, cane, walker. Pt states does not usually use AD to ambulate. Also has/uses an adjustable bed. ? Pt states no need for further DME at this time.? HHC/SNF: No hx of either. Denies need for either. Pt wishes to return home and states has no concerns with going home at time of discharge.? CM to follow for any discharge planning/needs.? Pt voices no further concerns/needs at this time.? Advised pt to ask for CM if any further questions/concerns/needs arise.? Voices understanding. PLAN: ?Home w/family support and discharge plans in place. Cony PRABHAKAR RN, CM
[2022-10-24] MEDS: Atorvastatin Calcium 40 MG Tablet PO (22:04)
[2022-10-24] MEDS: Metoprolol Tartrate 50 MG Tablet PO (22:04)
[2022-10-24] MEDS: Heparin Injection (Vial) 5,000 UNIT/ML VIAL 5000 UNIT SC (22:05)
[2022-10-24] MEDS: TICAGRELOR 90 MG TABLET PO (22:05)
[2022-10-25] VITALS (13 sets, daily range): BP systolic 92–138; BP diastolic 44–75; PULSE 57–76; RESP 14–16; TEMP 36.4; O2SAT 96–100; BMI 28.8
[2022-10-25] MEDS: Heparin Injection (Vial) 5,000 UNIT/ML VIAL 5000 UNIT SC ×3 (05:06→22:14)
[2022-10-25 05:17] LABS: Basophil# 0.04 X10^3/uL; Basophil% 0.3 % (0-1); Eosinophil# 0.02 X10^3/uL; Eosinophils% 0.1 % (0-5); Hematocrit 37.2 % (37-47); Hemoglobin 11.7 g/dL (12.0-15.0); Lymphocyte % 11.1 % (19-41); Mean Corp Hgb Conc 31.5 g/dL (32-36); Mean Corpuscular Hgb 29.8 pg (27.0-32.0); Mean Corpuscular Volume 94.7 fL (81-99); Mean Platelet Vol. 10.5 fl (6.2-12.0); Monocyte# 0.83 X10^3/uL; Monocyte% 6.2 % (0-10); NRBC Flagged by Analyzer 0 % (0-5); Neutrophil # 11.04 X10^3/uL (2.7-7.7); Neutrophil % 81.9 % (47-70); Platelet Count 329 K/mm3 (150-450); RBC Distribution Width CV 12.3 % (11.6-14.6); RBC Distribution Width SD 42.3 fl (35.1-43.9); Red Blood Count 3.93 M/mm3 (4.2-5.4); White Blood Count 13.5 K/mm3 (4.4-11.0)
[2022-10-25 05:38] LABS: Phosphorus 2.6 mg/dL (2.5-4.9)
[2022-10-25 05:42] LABS: ALB/GLOB Ratio 0.9 RATIO (0.9-2.4); AST(SGOT) 310 U/L (15-37); Alanine Aminotransfer ALT/SGPT 62 U/L (13-56); Alkaline Phosphatase 76 U/L (45-117); Anion Gap 6 (5-15); BUN 19 mg/dL (7-18); BUN/Creat Ratio 19.1 RATIO (10-20); Calcium,Total 8.4 mg/dL (8.5-10.1); Chloride 110 mmol/L (98-107); Cholesterol 221 mg/dL (200); EST Glomerular Filtration Rate 57 mL/min (>60); Est Glom Filt Rate - Afr Amer 69 mL/min (>60); Estimated Creatinine Clearance 47.43 ml/min; Globulin 3.5 g/dL (2.2-4.2); Glucose 245 mg/dL (74-106); High Density Lipoprotein 39 mg/dL; Magnesium 1.8 mg/dL (1.6-2.6); Potassium 3.7 mmol/L (3.5-5.1); Protein, Total 6.5 g/dL (6.4-8.2); Sodium Level 139 mmol/L (136-145); Thyroid Stim Hormone (TSH) 0.62 uIU/mL (0.358-3.74); Triglycerides 140 mg/dL; Very Low Density Lipoprotein 28 mg/dL (5-40)
[2022-10-25] MEDS: Aspirin E.C. 81 MG Tablet PO (08:21)
[2022-10-25] MEDS: Metoprolol Tartrate 50 MG Tablet PO ×2 (08:21→22:13)
[2022-10-25] MEDS: glipiZIDE 10 MG Tablet PO (08:21)
[2022-10-25] MEDS: TICAGRELOR 90 MG TABLET PO ×2 (08:21→22:13)
[2022-10-25] MEDS: Lisinopril 20 MG Tablet PO (08:22)
[2022-10-25] MEDS: Insulin Lispro 100 UNIT/ML INSULN.PEN SC ×3 (08:46→15:08)
[2022-10-25] MEDS: Insulin Glargine-YFGN 100 UNIT/ML Pen 10 UNIT SC (08:46)
[2022-10-25 08:56] LABS: Hemoglobin A1c 7.8 % (3.8-5.6)
[2022-10-25 11:21] LABS: Bedside Glucose 186 mg/dL (74-106)
--- NOTE | 2022-10-25 14:53 | PN.HOSP_ITS ---
Reason for Visit Reason for Visit: Chest pain Subjective Subjective Patient states she had no issues overnight. No arrhythmias on telemetry. She indicates she did not sleep well but did not expect to being in the hospital. Objective Data Objective Data Vital Signs: Vital Signs Temp Pulse Resp BP Pulse Ox O2 Del Method O2 Flow Rate 97.5 F L 61 14 136/75 H 100 Room Air 2 10/25/22 11:21 10/25/22 11:21 10/25/22 11:21 10/25/22 11:21 10/25/22 11:21 10/25/22 11:21 10/24/22 22:00 Oxygen Flow Rate (L/min) 2 Oxygen Delivery Method Room Air Weight: 64.8 kg Body Mass Index (BMI) 28.8 Intake & Output: Intake and Output for Last 24 Hours 10/23/22 10/24/22 10/25/22 23:59 23:59 23:59 Intake Total 1555 / 1755 600 / 600 Output Total 250 / 250 Balance 1305 / 1505 600 / 600 Lab / Micro Data 10/25/22 05:05 10/25/22 05:05 Labs: Laboratory Results - last 24 hr 10/24/22 15:40: WBC 9.7, RBC 4.20, Hgb 12.5, Hct 39.8, MCV 94.8, MCH 29.8, MCHC 31.4 L, RDW Std Deviation 42.7, RDW Coeff of Ron 12.5, Plt Count 417, MPV 11.2, Immature Gran % (Auto) 0.200, Neut % (Auto) 65.6, Lymph % (Auto) 24.8, Dickenson % (Auto) 7.5, Eos % (Auto) 1.4, Baso % (Auto) 0.5, Absolute Neuts (auto) 6.4, Absolute Lymphs (auto) 2.41, Nucleated RBC % 0, PT 13.7, INR 1.0, APTT 30.4, Sodium 136, Potassium 4.4, Chloride 104, Carbon Dioxide 24.0, Anion Gap 8, BUN 27 H, Creatinine 1.75 H, Estim Creat Clear Calc 19.03, Est GFR (MDRD) Af Amer 36 L, Est GFR (MDRD) Non-Af 30 L, BUN/Creatinine Ratio 15.4, Glucose 391 H, Calcium 8.9, Troponin I High Sens 483 H* 10/25/22 05:05: WBC 13.5 H, RBC 3.93 L, Hgb 11.7 L, Hct 37.2, MCV 94.7, MCH 29.8, MCHC 31.5 L, RDW Std Deviation 42.3, RDW Coeff of Ron 12.3, Plt Count 329, MPV 10.5, Immature Gran % (Auto) 0.400, Neut % (Auto) 81.9 H, Lymph % (Auto) 11.1 L, Dickenson % (Auto) 6.2, Eos % (Auto) 0.1, Baso % (Auto) 0.3, Absolute Neuts (auto) 11.0 H, Absolute Lymphs (auto) 1.50, Nucleated RBC % 0, Sodium 139, Potassium 3.7, Chloride 110 H, Carbon Dioxide 23.0, Anion Gap 6, BUN 19 H, Creatinine 1.00, Estim Creat Clear Calc 47.43, Est GFR (MDRD) Af Amer 69, Est GFR (MDRD) Non-Af 57 L, BUN/Creatinine Ratio 19.1, Glucose 245 H, Hemoglobin A1c 7.8 H, Calcium 8.4 L, Phosphorus 2.6, Magnesium 1.8, Total Bilirubin 0.70, AST 310 H, ALT 62 H, Alkaline Phosphatase 76, Total Protein 6.5, Albumin 3.0 L, Globulin 3.5, Albumin/Globulin Ratio 0.9, Triglycerides 140, Cholesterol 221 H, LDL Cholesterol 154 H, VLDL Cholesterol 28, HDL Cholesterol 39 L, TSH 0.62 10/25/22 11:00: POC Glucose 186 H Radiography Diagnostic Testing: Radiology Impression Chest X-Ray 10/24/22 15:55 IMPRESSION: Mild right infrahilar atelectasis or infiltrate Electronically Signed: Edward Molina MD at 16:25 EDT , Physical Exam Const alert, oriented x3, no apparent distress and well nourished Constitutional Narrative: Older white female, overweight, sitting up in bed, patient appears comfortable and nontoxic General Appearance: cooperative HEENT normocephalic, head/scalp atraumatic and hearing grossly normal bilaterally HEENT Narrative: Dentures in place, Mallampati 2, no thrush Resp normal respiratory effort, no retractions, no use of accessory muscles and clear to auscultation bilaterally Auscultation: Negative for rales, rhonchi or wheezes Cardio regular rate, regular rhythm, S1 normal heart sound, S2 normal heart sound, no murmurs, no rub, no gallops and no clicks GI normal to inspection, nondistended, normoactive bowel sounds, soft to palpation and non-tender Extremity no clubbing, cyanosis or edema Extremity Narrative: Pedal pulses are 2+, right wrist is healing well with mild tenderness at catheterization site Neuro oriented x3, moves all extremities and no focal motor deficits Speech: speech normal Psych affect normal Psych Narrative: Pleasant, eye contact is good, patient is appropriate Assessment & Plan Assessment/Plan (1) STEMI (ST elevation myocardial infarction): QUALIFIERS: Involved coronary artery: right coronary artery Qualified Code(s): I21.11 - ST elevation (STEMI) myocardial infarction involving right coronary artery (2) Elevated serum creatinine: (3) Hyperglycemia: (4) Elevated troponin: (5) Bradycardia: (6) SAULO (acute kidney injury): (7) Leukocytosis: PLAN: Plan STEMI -Patient taken emergently to the [facility] and RCA 99% obstruction noted with an 80% lesion just proximal to the occlusion--> RAJANI x2 to RCA -Echocardiogram pending will be done tomorrow morning -Total cholesterol 221/LDL 154/HDL 39/triglycerides 140 -Hemoglobin A1c is 7.8 -Continue aspirin 81 mg daily -Continue atorvastatin 80 mg nightly -Cardiac rehab consultation -Dietitian is following and has given diet information -Continue home beta-renate and PRISCILLA inhibitor -Brilinta 90 mg p.o. twice daily -Cardiology following-appreciate input Bradycardia -Resolved SAULO -Serum creatinine 1.75 on admission -Serum creatinine is 1.0 today and I think therefore we can diagnose her with acute kidney injury on presentation -SALUO has now resolved -Repeat BMP in a.m. Leukocytosis -No signs of infection -Suspect reactive -Repeat CBC in a.m. DM-2 with hyperglycemia -A1c is 7.8 and control could improve -Continue glipizide -Hold metformin with recent contrast dosing -Add Lantus 10 units as fasting blood sugar this morning was markedly elevated at greater than 200 -May addition of more oral medication or basal insulin at discharge -Hold oral agents -Sliding scale -Cardiac/carb controlled diet Hypertension -Continue metoprolol -Continue lisinopril Hyperlipidemia -Total cholesterol was greater than 200 with an LDL of 154 -Continue atorvastatin and will prescribe at discharge DVT prophylaxis -Lovenox subcu daily CODE STATUS -Full code is verified on admission Charges/Coding Visit Charges Inpatient E&M: 05877 Subs Hosp L2
[2022-10-25 15:27] LABS: Bedside Glucose 166 mg/dL (74-106)
--- NOTE | 2022-10-25 15:33 | PCM.PN.CARD ---
Subjective Subjective Doing well. Denies any cardiac complaints Objective Data Vital Signs: Vital Signs Temp Pulse Resp BP Pulse Ox O2 Del Method O2 Flow Rate 97.5 F L 61 14 136/75 H 100 Room Air 2 10/25/22 11:21 10/25/22 11:21 10/25/22 11:21 10/25/22 11:21 10/25/22 11:21 10/25/22 11:21 10/24/22 22:00 Oxygen Flow Rate (L/min) 2 Oxygen Delivery Method Room Air Weight: 142 lb 13.753 oz Body Mass Index (BMI) 28.8 Intake & Output: Intake and Output for Last 24 Hours 10/23/22 10/24/22 10/25/22 23:59 23:59 23:59 Intake Total 1555 / 1755 600 / 600 Output Total 250 / 250 Balance 1305 / 1505 600 / 600 Lab / Micro Data 10/25/22 05:05 10/25/22 05:05 Labs: Laboratory Results - last 24 hr 10/24/22 15:40: WBC 9.7, RBC 4.20, Hgb 12.5, Hct 39.8, MCV 94.8, MCH 29.8, MCHC 31.4 L, RDW Std Deviation 42.7, RDW Coeff of Ron 12.5, Plt Count 417, MPV 11.2, Immature Gran % (Auto) 0.200, Neut % (Auto) 65.6, Lymph % (Auto) 24.8, Montague % (Auto) 7.5, Eos % (Auto) 1.4, Baso % (Auto) 0.5, Absolute Neuts (auto) 6.4, Absolute Lymphs (auto) 2.41, Nucleated RBC % 0, PT 13.7, INR 1.0, APTT 30.4, Sodium 136, Potassium 4.4, Chloride 104, Carbon Dioxide 24.0, Anion Gap 8, BUN 27 H, Creatinine 1.75 H, Estim Creat Clear Calc 19.03, Est GFR (MDRD) Af Amer 36 L, Est GFR (MDRD) Non-Af 30 L, BUN/Creatinine Ratio 15.4, Glucose 391 H, Calcium 8.9, Troponin I High Sens 483 H* 10/25/22 05:05: WBC 13.5 H, RBC 3.93 L, Hgb 11.7 L, Hct 37.2, MCV 94.7, MCH 29.8, MCHC 31.5 L, RDW Std Deviation 42.3, RDW Coeff of Ron 12.3, Plt Count 329, MPV 10.5, Immature Gran % (Auto) 0.400, Neut % (Auto) 81.9 H, Lymph % (Auto) 11.1 L, Mont[place] % (Auto) 6.2, Eos % (Auto) 0.1, Baso % (Auto) 0.3, Absolute Neuts (auto) 11.0 H, Absolute Lymphs (auto) 1.50, Nucleated RBC % 0, Sodium 139, Potassium 3.7, Chloride 110 H, Carbon Dioxide 23.0, Anion Gap 6, BUN 19 H, Creatinine 1.00, Estim Creat Clear Calc 47.43, Est GFR (MDRD) Af Amer 69, Est GFR (MDRD) Non-Af 57 L, BUN/Creatinine Ratio 19.1, Glucose 245 H, Hemoglobin A1c 7.8 H, Calcium 8.4 L, Phosphorus 2.6, Magnesium 1.8, Total Bilirubin 0.70, AST 310 H, ALT 62 H, Alkaline Phosphatase 76, Total Protein 6.5, Albumin 3.0 L, Globulin 3.5, Albumin/Globulin Ratio 0.9, Triglycerides 140, Cholesterol 221 H, LDL Cholesterol 154 H, VLDL Cholesterol 28, HDL Cholesterol 39 L, TSH 0.62 10/25/22 11:00: POC Glucose 186 H 10/25/22 15:06: POC Glucose 166 H Cardiology Labs/Tests 10/24/22 15:40: WBC 9.7, RBC 4.20, Hgb 12.5, Hct 39.8, MCV 94.8, MCH 29.8, MCHC 31.4 L, Plt Count 417, MPV 11.2, Immature Gran % (Auto) 0.200, Neut % (Auto) 65.6, Lymph % (Auto) 24.8, [place] % (Auto) 7.5, Eos % (Auto) 1.4, Baso % (Auto) 0.5, Absolute Neuts (auto) 6.4, Nucleated RBC % 0, PT 13.7, INR 1.0, APTT 30.4, Sodium 136, Potassium 4.4, Chloride 104, Carbon Dioxide 24.0, Anion Gap 8, BUN 27 H, Creatinine 1.75 H, Est GFR (MDRD) Af Amer 36 L, Est GFR (MDRD) Non-Af 30 L, BUN/Creatinine Ratio 15.4, Glucose 391 H, Calcium 8.9 10/25/22 05:05: WBC 13.5 H, RBC 3.93 L, Hgb 11.7 L, Hct 37.2, MCV 94.7, MCH 29.8, MCHC 31.5 L, Plt Count 329, MPV 10.5, Immature Gran % (Auto) 0.400, Neut % (Auto) 81.9 H, Lymph % (Auto) 11.1 L, [place] % (Auto) 6.2, Eos % (Auto) 0.1, Baso % (Auto) 0.3, Absolute Neuts (auto) 11.0 H, Nucleated RBC % 0, Sodium 139, Potassium 3.7, Chloride 110 H, Carbon Dioxide 23.0, Anion Gap 6, BUN 19 H, Creatinine 1.00, Est GFR (MDRD) Af Amer 69, Est GFR (MDRD) Non-Af 57 L, BUN/Creatinine Ratio 19.1, Glucose 245 H, Hemoglobin A1c 7.8 H, Calcium 8.4 L, Phosphorus 2.6, Magnesium 1.8, Total Bilirubin 0.70, Triglycerides 140, Cholesterol 221 H, LDL Cholesterol 154 H, VLDL Cholesterol 28, HDL Cholesterol 39 L Rhythm: EKG: ECHO: Stress Test: Cardiac Cath: PCI: CT Surgery: Holter monitor: EPS: PPM: CXR: Chest CT Scan: Radiography Diagnostic Testing: Radiology Impression Chest X-Ray 10/24/22 15:55 IMPRESSION: Mild right infrahilar atelectasis or infiltrate Electronically Signed: Edward Molina MD at 16:25 EDT , Physical Exam Const alert and oriented x3 HEENT normocephalic Eyes no scleral icterus Resp normal respiratory effort Cardio regular rate Skin no rashes or lesions noted Psych mental status grossly normal Assessment & Plan Assessment/Plan (1) STEMI (ST elevation myocardial infarction): QUALIFIERS: Involved coronary artery: right coronary artery Qualified Code(s): I21.11 - ST elevation (STEMI) myocardial infarction involving right coronary artery PLAN: Treated with drug-eluting stent to the RCA. We will keep the patient on aspirin, Brilinta, statin. She is already on lisinopril and beta-renate that will be continued. We will hold the metformin for 48 hours. 2D echo to be checked on Wednesday. Charges/Coding Visit Charges Inpatient E&M: 28593 Subs Hosp L2
--- NOTE | 2022-10-25 16:45 | EKG12_ITS ---
Test Reason : OT STENT Blood Pressure : / mmHG Vent. Rate : 086 BPM Atrial Rate : 086 BPM P-R Int : 250 ms QRS Dur : 104 ms QT Int : 394 ms P-R-T Axes : 054 -24 104 degrees QTc Int : 471 ms Sinus rhythm with 1st degree A-V block Inferior infarct , possibly acute T wave abnormality, consider lateral ischemia ACUTE ID / STEMI Consider right ventricular involvement in acute inferior infarct Abnormal ECG Confirmed by CRISTAL ALFONSO, JULIANO ([id number]), writer editor SABINO HERRON ([id number]) on 10/27/2022 12:25:54 PM Referred By: Lisa Oliva Confirmed By:JULIANO BEE MD
[2022-10-25] MEDS: Atorvastatin Calcium 80 MG Tablet PO (22:14)
[2022-10-25 22:47] LABS: Bedside Glucose 166 mg/dL (74-106)
[2022-10-26] VITALS: BP 109/64; PULSE 83; RESP 16; TEMP 36.6; O2SAT 99
[2022-10-26 03:27] VITALS: BMI 29.0
[2022-10-26 06:00] VITALS: BP 145/74; PULSE 63; RESP 16; TEMP 36.9; O2SAT 99
[2022-10-26] MEDS: 0.9% Saline Lock 10 ML Syringe IV (06:19)
[2022-10-26] MEDS: Heparin Injection (Vial) 5,000 UNIT/ML VIAL 5000 UNIT SC ×2 (06:20→13:00)
[2022-10-26] MEDS: Insulin Lispro 100 UNIT/ML INSULN.PEN SC ×2 (06:26→12:59)
[2022-10-26 06:39] LABS: Bedside Glucose 171 mg/dL (74-106)
[2022-10-26 06:50] LABS: Absolute Lymphocyte Count 1.65 X10^3/uL (0.83-4.51); Absolute Neutrophil Count 7.3 X10^3/uL (2.0-7.7); Basophil# 0.03 X10^3/uL; Basophil% 0.3 % (0-1); Eosinophil# 0.02 X10^3/uL; Eosinophils% 0.2 % (0-5); Hemoglobin 12.5 g/dL (12.0-15.0); Lymphocyte # 1.65 X10^3/ul (0.83-4.51); Lymphocyte % 16.7 % (19-41); Mean Corp Hgb Conc 32.9 g/dL (32-36); Mean Corpuscular Hgb 30.6 pg (27.0-32.0); Mean Corpuscular Volume 92.9 fL (81-99); Mean Platelet Vol. 10.7 fl (6.2-12.0); Monocyte# 0.92 X10^3/uL; Monocyte% 9.3 % (0-10); NRBC Flagged by Analyzer 0 % (0-5); Neutrophil # 7.26 X10^3/uL (2.7-7.7); Neutrophil % 73.3 % (47-70); Platelet Count 309 K/mm3 (150-450); RBC Distribution Width CV 12.5 % (11.6-14.6); RBC Distribution Width SD 42.7 fl (35.1-43.9); Red Blood Count 4.09 M/mm3 (4.2-5.4); White Blood Count 9.9 K/mm3 (4.4-11.0)
[2022-10-26 07:23] LABS: Anion Gap 6 (5-15); BUN 14 mg/dL (7-18); BUN/Creat Ratio 16.9 RATIO (10-20); Calcium,Total 8.5 mg/dL (8.5-10.1); Chloride 108 mmol/L (98-107); Creatinine, Serum 0.83 mg/dL (0.55-1.02); EST Glomerular Filtration Rate 71 mL/min (>60); Est Glom Filt Rate - Afr Amer 85 mL/min (>60); Estimated Creatinine Clearance 57.41 ml/min; Glucose 178 mg/dL (74-106); Potassium 3.4 mmol/L (3.5-5.1); Sodium Level 138 mmol/L (136-145)
--- NOTE | 2022-10-26 08:45 | PCM.PN.HOSP ---
Reason for Visit Reason for Visit: Diagnoses Elevated white blood cell count, unspecified (10/24/22) ST elevation (STEMI) myocardial infarction involving right coronary artery (10/24/22) ST elevation (STEMI) myocardial infarction of unspecified site (10/24/22) Acute kidney failure, unspecified (10/24/22) Bradycardia, unspecified (10/24/22) Hyperglycemia, unspecified (10/24/22) Other specified abnormalities of plasma proteins (10/24/22) Other specified abnormal findings of blood chemistry (10/24/22) Subjective Subjective Feels well. Objective Data Objective Data Vital Signs: Vital Signs Temp Pulse Resp BP Pulse Ox O2 Del Method O2 Flow Rate 36.9 C 63 16 145/74 H 99 Room Air 2 10/26/22 06:00 10/26/22 06:00 10/26/22 06:00 10/26/22 06:00 10/26/22 06:00 10/26/22 06:00 10/24/22 22:00 Oxygen Flow Rate (L/min) 2 Oxygen Delivery Method Room Air Weight: 65.1 kg Body Mass Index (BMI) 29.0 Intake & Output: Intake and Output for Last 24 Hours 10/24/22 10/25/22 10/26/22 23:59 23:59 23:59 Intake Total 1555 / 1755 920 / 920 Output Total 250 / 250 Balance 1305 / 1505 920 / 920 Lab / Micro Data 10/26/22 06:11 10/26/22 06:11 Labs: Laboratory Results - last 24 hr 10/25/22 05:05: Hemoglobin A1c 7.8 H 10/25/22 11:00: POC Glucose 186 H 10/25/22 15:06: POC Glucose 166 H 10/25/22 22:04: POC Glucose 166 H 10/26/22 06:11: WBC 9.9, RBC 4.09 L, Hgb 12.5, Hct 38.0, MCV 92.9, MCH 30.6, MCHC 32.9, RDW Std Deviation 42.7, RDW Coeff of Ron 12.5, Plt Count 309, MPV 10.7, Immature Gran % (Auto) 0.200, Neut % (Auto) 73.3 H, Lymph % (Auto) 16.7 L, [place] % (Auto) 9.3, Eos % (Auto) 0.2, Baso % (Auto) 0.3, Absolute Neuts (auto) 7.3, Absolute Lymphs (auto) 1.65, Nucleated RBC % 0, Sodium 138, Potassium 3.4 L, Chloride 108 H, Carbon Dioxide 24.0, Anion Gap 6, BUN 14, Creatinine 0.83, Estim Creat Clear Calc 57.41, Est GFR (MDRD) Af Amer 85, Est GFR (MDRD) Non-Af 71, BUN/Creatinine Ratio 16.9, Glucose 178 H, Calcium 8.5 10/26/22 06:21: POC Glucose 171 H Physical Exam Const alert and no apparent distress Resp normal respiratory effort, no retractions, no use of accessory muscles and clear to auscultation bilaterally Cardio regular rate, regular rhythm, S1 normal heart sound and S2 normal heart sound GI normal to inspection, nondistended, normoactive bowel sounds, soft to palpation, non-tender and non-distended Assessment & Plan Assessment/Plan (1) STEMI (ST elevation myocardial infarction): QUALIFIERS: Involved coronary artery: right coronary artery Qualified Code(s): I21.11 - ST elevation (STEMI) myocardial infarction involving right coronary artery PLAN: Patient taken emergently to the Adjunct English Instructor and RCA 99% obstruction noted with an 80% lesion just proximal to the occlusion--> RAJANI x2 to RCA Echocardiogram pending Total cholesterol 221/LDL 154/HDL 39/triglycerides 140 Hemoglobin A1c is 7.8 Continue aspirin 81 mg daily Continue atorvastatin 80 mg nightly Cardiac rehab consultation Dietitian is following and has given diet information Continue home beta-renate and PRISCILLA inhibitor Brilinta 90 mg p.o. twice daily Cardiology following-appreciate input (2) Bradycardia: PLAN: Resolved (3) SAULO (acute kidney injury): PLAN: Serum creatinine 1.75 on admission Serum creatinine is 1.0 today and I think therefore we can diagnose her with acute kidney injury on presentation SAULO has now resolved (4) Hyperglycemia: PLAN: DM-2 with hyperglycemia A1c is 7.8 and control could improve Continue glipizide Hold metformin with recent contrast dosing Add Lantus 10 units as fasting blood sugar this morning was markedly elevated at greater than 200 -May addition of more oral medication or basal insulin at discharge Hold oral agents Sliding scale Cardiac/carb controlled diet (5) Leukocytosis: QUALIFIERS: Leukocytosis type: unspecified Qualified Code(s): D72.829 - Elevated white blood cell count, unspecified PLAN: Resolved No signs of infection Suspect reactive PLAN: Plan Chronic conditions: Hypertension-Continue metoprolol-Continue lisinopril Hyperlipidemia-Total cholesterol was greater than 200 with an LDL of 154-Continue atorvastatin and will prescribe at discharge DVT prophylaxis -Lovenox subcu daily CODE STATUS -Full code is verified on admission DC home.
--- NOTE | 2022-10-26 09:07 | CRPHASE1_ITS ---
Patient Communication Patient Information PHII Cardiac Rehab Discussed with Patient:: Yes Guide to Cardiac Rehab Given to Patient:: Yes Cardiac Rehab Facility Choice List Given to Patient:: Yes Communication to Cardiac Rehab Choice Program [facility] CR PHII:: Communication Given to CR Machine Cloth Measurer:: Lisa Oliva Phase II Cardiac Rehab:: Yes Sessions:: 36 sessions - 3 days/wk, 12 weeks Cardiac Rehabilitation Info Program Information Cardiac Rehabilitation Program Information: Cardiac Rehab The cardiac rehab team at [facility] consists of highly skilled exercise physiologists, nurses, respiratory therapists and physicians working together with you. Our purpose is to help you have a full recovery and achieve the goals you set for yourself. Over the years many of our patients have returned to activities they assumed they would never do again! We can help restore your confidence and motivation to make lifestyle changes that can have a significant impact on your health and quality of life! We can help answer questions and concerns you may have about exercise, lifestyle, medications, diet, stress and anxiety which are common following a hospitalization. WE monitor ECG and vital signs during exercise and discuss your progress with you and report to your physician(s). Cardiac Rehab is proven to help reduce readmissions, improve functional capacity and lower recurrence of problems with your heart. Our Cardiac Rehab program is Certified by the [place] [employer]-Vascular and Pulmonary [employer] (AACVPR) and Accredited by the [place] [employer] through our [facility]. You can contact us at . We invite you to call us with your questions or to get started in our program. If you have other questions or concerns be sure to ask your physician/provider during your follow-up visit. WE look forward to seeing you!
--- NOTE | 2022-10-26 09:08 | CRPH1.INSTRU ---
General Education Discussed with Patient CAD and cardiac anatomy and function:: Patient communicates acknowledgment Explanation of diagnoses and procedures:: Patient communicates acknowledgment Sign/Symptoms of [place]:: Patient communicates acknowledgment Antiplatelet therapy: Patient communicates acknowledgment Proper use of NTG-SL: Patient communicates acknowledgment Emergency procedures and activation of EMS: Patient communicates acknowledgment Compliance of all prescribed medications: Patient communicates acknowledgment Smoking Risk Factors Patient Nicotine/Smoking Risk Factors Are:: Never smoked Dyslipidemia Risk Factors Patient Dyslipidemia Risk Factors Are:: Total Cholesterol, Triglycerides, HDL and LDL Recommendations Recommendations Include:: Lipid profile not available Response Code Dyslipidemia Response Code:: Patient communicates acknowledgment Overweight/Obesity Risk Factors Patient Overweight/Obesity Risk Factors Are:: BMI Normal [24-29 & > 65 years old] Recommendations Recommendations Include:: Weight loss of 5-10%, Reduced calorie diet and Exercise 5-7 times/week Response Code Overweight/Obesity:: Patient communicates acknowledgment Hypertension Recommendations Recommendations Include:: BP <130/80 if diabetic and Decrease/maintain normal body weight Response Code Hypertension:: Patient communicates acknowledgment Diabetes Risk Factors Patient Diabetes Risk Factors Are:: Elevated blood sugars Recommendations Recommendations Include:: Maintain fasting blood sugars 70-110 md/dL, Maintain HgbA1c of 6% or less, Monitor blood sugar as prescribed, Diabetic dietary guidelines and Decrease/maintain body weight Response Code Diabetes:: Patient communicates acknowledgment Sedentary Risk Factors Patient Sedentary Risk Factors Are:: Lack of regular exercise Recommendations Recommendations Include:: Aerobic exercise 5-7 times/week for 20-30 minutes continuously, Benefits of regular exercise, Discussed home walking program and Monitored Outpatient Cardiac Rehab Response Code Sedentary Response Code:: Patient communicates acknowledgment
[2022-10-26 09:54] VITALS: BP 138/69; PULSE 59; RESP 18; TEMP 36.4; O2SAT 98
[2022-10-26] MEDS: Aspirin E.C. 81 MG Tablet PO (09:59)
[2022-10-26] MEDS: TICAGRELOR 90 MG TABLET PO (09:59)
[2022-10-26] MEDS: glipiZIDE 10 MG Tablet PO (09:59)
[2022-10-26] MEDS: Lisinopril 20 MG Tablet PO (09:59)
[2022-10-26 10:01] VITALS: PULSE 62
[2022-10-26] MEDS: Metoprolol Tartrate 50 MG Tablet PO (10:01)
--- NOTE | 2022-10-26 10:01 | PN.CARD_ITS ---
Subjective Subjective Patient seen and evaluated Objective Data Vital Signs: Vital Signs Temp Pulse Resp BP Pulse Ox O2 Del Method O2 Flow Rate 97.6 F L 59 L 18 138/69 H 98 Room Air 2 10/26/22 09:54 10/26/22 09:54 10/26/22 09:54 10/26/22 09:54 10/26/22 09:54 10/26/22 09:54 10/24/22 22:00 Oxygen Flow Rate (L/min) 2 Oxygen Delivery Method Room Air Weight: 143 lb 8.335 oz Body Mass Index (BMI) 29.0 Intake & Output: Intake and Output for Last 24 Hours 10/24/22 10/25/22 10/26/22 23:59 23:59 23:59 Intake Total 1555 / 1755 920 / 920 Output Total 250 / 250 Balance 1305 / 1505 920 / 920 Lab / Micro Data 10/26/22 06:11 10/26/22 06:11 Labs: Laboratory Results - last 24 hr 10/25/22 11:00: POC Glucose 186 H 10/25/22 15:06: POC Glucose 166 H 10/25/22 22:04: POC Glucose 166 H 10/26/22 06:11: WBC 9.9, RBC 4.09 L, Hgb 12.5, Hct 38.0, MCV 92.9, MCH 30.6, MCHC 32.9, RDW Std Deviation 42.7, RDW Coeff of Ron 12.5, Plt Count 309, MPV 10.7, Immature Gran % (Auto) 0.200, Neut % (Auto) 73.3 H, Lymph % (Auto) 16.7 L, [place] % (Auto) 9.3, Eos % (Auto) 0.2, Baso % (Auto) 0.3, Absolute Neuts (auto) 7.3, Absolute Lymphs (auto) 1.65, Nucleated RBC % 0, Sodium 138, Potassium 3.4 L , Chloride 108 H, Carbon Dioxide 24.0, Anion Gap 6, BUN 14, Creatinine 0.83, Estim Creat Clear Calc 57.41, Est GFR (MDRD) Af Amer 85, Est GFR (MDRD) Non-Af 71, BUN/Creatinine Ratio 16.9, Glucose 178 H, Calcium 8.5 10/26/22 06:21: POC Glucose 171 H Cardiology Labs/Tests 10/26/22 06:11: WBC 9.9, RBC 4.09 L, Hgb 12.5, Hct 38.0, MCV 92.9, MCH 30.6, MCHC 32.9, Plt Count 309, MPV 10.7, Immature Gran % (Auto) 0.200, Neut % (Auto) 73.3 H, Lymph % (Auto) 16.7 L, [place] % (Auto) 9.3, Eos % (Auto) 0.2, Baso % (Auto) 0.3, Absolute Neuts (auto) 7.3, Nucleated RBC % 0, Sodium 138, Potassium 3.4 L, Chloride 108 H, Carbon Dioxide 24.0, Anion Gap 6, BUN 14, Creatinine 0.83, Est GFR (MDRD) Af Amer 85, Est GFR (MDRD) Non-Af 71, BUN/Creatinine Ratio 16.9, Glucose 178 H, Calcium 8.5 Rhythm: EKG: ECHO: Stress Test: Cardiac Cath: PCI: CT Surgery: Holter monitor: EPS: PPM: CXR: Chest CT Scan: Radiography Diagnostic Testing: Radiology Impression Echocardiogram 10/24/22 16:44 Interpretation Summary Normal LV size. The estimated ejection fraction is 45 %. Mild segmental systolic dysfunction (see wall motion). Mild concentric left ventricular hypertrophy. Moderate (2+) eccentric mitral valve insufficiency. Ordering Physician: Lisa Oliva Referring Physician: Lisa Oliva Performed By: Naheed Martines RCS Physical Exam Const alert, oriented x3 and no apparent distress General Appearance: cooperative HEENT hearing grossly normal bilaterally Head and Scalp: atraumatic Eyes EOMs intact bilaterally Neck General: normal visual inspection Chest inspection of chest normal and palpation of chest normal Resp normal respiratory effort Auscultation: clear to auscultation bilaterally Cardio regular rate, regular rhythm, S1 normal heart sound and S2 normal heart sound Jugular Venous Distention: JVD Heart Sounds: murmur systolic II/ soft GI normal to inspection, nondistended, normoactive bowel sounds Extremity normal capillary refill and no pedal edema Peripheral Pulses: Yes pulses 2+ throughout and femoral pulses present Skin no rashes or lesions noted Neuro oriented x3 and CN's II-XII intact bilaterally Psych Appearance: grossly normal and appropriate Assessment & Plan Assessment/Plan (1) STEMI (ST elevation myocardial infarction): QUALIFIERS: Involved coronary artery: right coronary artery Qualified Code(s): I21.11 - ST elevation (STEMI) myocardial infarction involving right coronary artery PLAN: She is status post myocardial infarction with angioplasty and stenting of the right coronary artery. She appears to be doing well at this time. Her ejection fraction per echocardiogram was approximately 45% with mitral regurgitation. * The plan will be to continue her on aspirin and Brilinta * Beta-renate * High intensity statin * PRISCILLA inhibitor * Cardiac rehabilitation and follow-up in the office. 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 She will be monitored by physical exam as well as appropriate echocardiograms. Thank you for allowing me to participate in the care of your patient. Please don't hesitate to call if any issues arise.
[2022-10-26] MEDS: Insulin Glargine-YFGN 100 UNIT/ML Pen 10 UNIT SC (10:04)
[2022-10-26 10:26] LABS: Bedside Glucose 173 mg/dL (74-106)
--- NOTE | 2022-10-26 12:46 | DCINST_ITS ---
Discharge Instructions Diet Discharge Diet: Low fat / Low cholesterol Dressing / Incision Call your doctor if you observe: Shortness of breath and Chest pain Follow Up Care Test Results: Test results from this visit will be discussed in further detail at your follow- up appointment, if applicable. Discharge Plan Admission Admit Date/Time: 10/24/22 16:49 Primary Reason for Your Visit: myocardial infarction Attending Provider: Esequiel Campo Primary Care Provider: Adeola Camacho NP Consulting Providers: Mia Patel Discharge Orders/Prescriptions Prescriptions: New atorvastatin 80 mg Tablet 80 mg PO QHS Qty: 30 0RF aspirin 81 mg Tablet,Delayed Release (Dr/Ec) 81 mg PO DAILY@0800 Qty: 0 0RF Brilinta 90 mg Tablet 90 mg PO BID Qty: 60 0RF Continued lisinopril 20 mg tablet 20 mg PO DAILY Patient Comments: take 1 tablet by mouth once daily glipizide 10 mg tablet 10 mg PO DAILY Patient Comments: take 1 tablet by mouth once daily metoprolol tartrate 50 mg tablet 50 mg PO BID Patient Comments: take 1 tablet by mouth twice a day Held metformin 500 mg tablet 500 mg PO BID Hold Instructions: Resume on 10/29/22. Patient Comments: take 1 tablet by mouth twice a day Referrals / Follow Up: [facility] [Provider Group] - Within 1 Month Adeola Camacho NP, LICENSED NURSING ASSISTANT-C [Primary Care Provider] - Within 2 Weeks Disposition Disposition (needs filled in before D/C Order can be placed): Home, Self Care
--- NOTE | 2022-10-26 12:49 | PCM.DC.SUM ---
Providers Date of Admission: 10/24/22 Primary Care Physician: VITO Moffett Reason For Visit: STEMI Diagnosis Discharge Diagnosis (1) STEMI (ST elevation myocardial infarction): Status: Acute Code(s): I21.3 - ST elevation (STEMI) myocardial infarction of unspecified site Qualifiers: Involved coronary artery: right coronary artery Qualified Code(s): I21.11 - ST elevation (STEMI) myocardial infarction involving right coronary artery Plan: Patient taken emergently to the Rubber Compounder Formulator and RCA 99% obstruction noted with an 80% lesion just proximal to the occlusion--> RAJAIN x2 to RCA Echocardiogram pending Total cholesterol 221/LDL 154/HDL 39/triglycerides 140 Hemoglobin A1c is 7.8 Continue aspirin 81 mg daily Continue atorvastatin 80 mg nightly Cardiac rehab consultation Dietitian is following and has given diet information Continue home beta-rod and JUAN CARLOS inhibitor Brilinta 90 mg p.o. twice daily Cardiology following-appreciate input (2) Bradycardia: Status: Acute Code(s): R00.1 - Bradycardia, unspecified Plan: Resolved (3) SAULO (acute kidney injury): Status: Acute Code(s): N17.9 - Acute kidney failure, unspecified Plan: Serum creatinine 1.75 on admission Serum creatinine is 1.0 today and I think therefore we can diagnose her with acute kidney injury on presentation SAULO has now resolved (4) Hyperglycemia: Status: Acute Code(s): R73.9 - Hyperglycemia, unspecified Plan: DM-2 with hyperglycemia A1c is 7.8 and control could improve Continue glipizide Hold metformin with recent contrast dosing Add Lantus 10 units as fasting blood sugar this morning was markedly elevated at greater than 200 -May addition of more oral medication or basal insulin at discharge Hold oral agents Sliding scale Cardiac/carb controlled diet (5) Leukocytosis: Status: Acute Code(s): D72.829 - Elevated white blood cell count, unspecified Qualifiers: Leukocytosis type: unspecified Qualified Code(s): D72.829 - Elevated white blood cell count, unspecified Plan: Resolved No signs of infection Suspect reactive Plan Chronic conditions: Hypertension-Continue metoprolol-Continue lisinopril Hyperlipidemia-Total cholesterol was greater than 200 with an LDL of 154-Continue atorvastatin and will prescribe at discharge DVT prophylaxis -Lovenox subcu daily CODE STATUS -Full code is verified on admission DC home. Medications at Discharge Home Medications glipizide 10 mg tablet 10 mg PO DAILY DM 10/24/22 lisinopril 20 mg tablet 20 mg PO DAILY HTN 10/24/22 metformin 500 mg tablet 500 mg PO BID DM 10/24/22 metoprolol tartrate 50 mg tablet 50 mg PO BID HTN 10/24/22 aspirin 81 mg tablet,delayed release 81 mg PO DAILY@0800 #0 tabs 10/26/22 atorvastatin 80 mg tablet 80 mg PO QHS #30 tabs 10/26/22 ticagrelor 90 mg tablet (Brilinta) 90 mg PO BID #60 tabs 10/26/22 Hospital Course Operations None Procedures 2-D Echocardiogram and Cardiac catheterization Summary of Care Provided Minutes Spent on Discharge: 32 Weight / BMI Weight Weight: 65.1 kg Body Mass Index (BMI) 29.0 ABG / Lab / Microbiology Data 10/26/22 06:11 10/26/22 06:11 Laboratory: Laboratory Results - last 24 hr 10/25/22 15:06: POC Glucose 166 H 10/25/22 22:04: POC Glucose 166 H 10/26/22 06:11: WBC 9.9, RBC 4.09 L, Hgb 12.5, Hct 38.0, MCV 92.9, MCH 30.6, MCHC 32.9, RDW Std Deviation 42.7, RDW Coeff of Ron 12.5, Plt Count 309, MPV 10.7, Immature Gran % (Auto) 0.200, Neut % (Auto) 73.3 H, Lymph % (Auto) 16.7 L, [place] % (Auto) 9.3, Eos % (Auto) 0.2, Baso % (Auto) 0.3, Absolute Neuts (auto) 7.3, Absolute Lymphs (auto) 1.65, Nucleated RBC % 0, Sodium 138, Potassium 3.4 L, Chloride 108 H, Carbon Dioxide 24.0, Anion Gap 6, BUN 14, Creatinine 0.83, Estim Creat Clear Calc 57.41, Est GFR (MDRD) Af Amer 85, Est GFR (MDRD) Non-Af 71, BUN/Creatinine Ratio 16.9, Glucose 178 H, Calcium 8.5 10/26/22 06:21: POC Glucose 171 H 10/26/22 09:52: POC Glucose 173 H Radiography Diagnostic Testing: Radiology Impression Echocardiogram 10/24/22 16:44 Interpretation Summary Normal LV size. The estimated ejection fraction is 45 %. Mild segmental systolic dysfunction (see wall motion). Mild concentric left ventricular hypertrophy. Moderate (2+) eccentric mitral valve insufficiency. Ordering Physician: Lisa Oliva Referring Physician: Lisa Oliva Performed By: Naheed Martines RCS D/C Instructions Discharge Diet: Low fat / Low cholesterol Call your doctor if you observe: Shortness of breath and Chest pain Meaningful Use Info Meaningful Use Diagnoses (Choose all that apply): AMI AMI/Post PCI/Angioplasty Aspirin given w/in 24hrs of arrival?: Yes ASA at discharge?: Yes Antiplatelet Therapy at Discharge:: Yes Statins at discharge?: Yes Juan Carlos/ARB at discharge?: Yes Beta Rod at discharge?: No Reason Beta Rod not ordered:: Hypotension (bradycardia) Done w/ Acute IL measure.: Yes Documented LVEF (%): 45 Discharge Plan Admission Admit Date/Time: 10/24/22 16:49 Primary Reason for Your Visit: myocardial infarction Attending Provider: Esequiel Campo Primary Care Provider: Adeola Camacho NP Consulting Providers: Mia Patel Discharge Orders/Prescriptions Prescriptions: New atorvastatin 80 mg Tablet 80 mg PO QHS Qty: 30 0RF aspirin 81 mg Tablet,Delayed Release (Dr/Ec) 81 mg PO DAILY@0800 Qty: 0 0RF Brilinta 90 mg Tablet 90 mg PO BID Qty: 60 0RF Continued lisinopril 20 mg tablet 20 mg PO DAILY Patient Comments: take 1 tablet by mouth once daily glipizide 10 mg tablet 10 mg PO DAILY Patient Comments: take 1 tablet by mouth once daily metoprolol tartrate 50 mg tablet 50 mg PO BID Patient Comments: take 1 tablet by mouth twice a day Held metformin 500 mg tablet 500 mg PO BID Hold Instructions: Resume on 10/29/22. Patient Comments: take 1 tablet by mouth twice a day Referrals / Follow Up: [facility] [Provider Group] - Within 1 Month Adeola Camacho NP, BAGGAGE CLERK-C [Primary Care Provider] - Within 2 Weeks Disposition Disposition (needs filled in before D/C Order can be placed): Home, Self Care Charges/Coding Visit Charges Inpatient E&M: 95935 Disch Hosp >30min
[2022-10-26 13:20] LABS: Bedside Glucose 221 mg/dL (74-106)
--- NOTE | 2022-10-26 13:37 | CASEMGMT ---
Patient has order for discharge. RN CM in to patient's room to discuss discharge needs, daughter at bedside. [employer] savings card was provided to patient previously. Patient denied needs at discharge. Patient and daughter had no further questions or concerns at this time.
--- NOTE | 2022-10-26 13:57 | PHA.DC.MC.R ---
Pharmacy [facility] has performed discharge medication reconciliation and counseling for this patient. 1. ASPIRIN 81MG PO DAILYCM 2. ATORVASTATIN 80MG PO QHS 3. TICAGRELOR 90MG PO BID The patient's discharge medication list was reviewed for discrepancies and discrepancies were resolved. The patient was counseled on the following discharge medications and changes in medications for homegoing were reviewed. The Reason for Use, instructions for use, and potential side effects were reviewed for all new medications. The patient's questions regarding all of their medications were answered. The patient was able to verbally demonstrate an understanding of their discharge medications. Patient counseled by pharmacy customer care specialistLj. Medications at Discharge Home Medications glipizide 10 mg tablet 10 mg PO DAILY DM 10/24/22 lisinopril 20 mg tablet 20 mg PO DAILY HTN 10/24/22 metformin 500 mg tablet 500 mg PO BID DM 10/24/22 metoprolol tartrate 50 mg tablet 50 mg PO BID HTN 10/24/22 aspirin 81 mg tablet,delayed release 81 mg PO DAILY@0800 #0 tabs 10/26/22 atorvastatin 80 mg tablet 80 mg PO QHS #30 tabs 10/26/22 ticagrelor 90 mg tablet (Brilinta) 90 mg PO BID #60 tabs 10/26/22
[2022-10-26 14:20] VITALS: BP 133/64; PULSE 65; RESP 18; TEMP 36.5; O2SAT 98
== END 2022-10-26 14:48 | disposition home or self-care (01) | DRG 247 ==
LOC: ED 15:42 → ICU 17:34 → PCU 10-25 11:17
PROVIDERS: Admitting Provider Internal Medicine; Emergency Provider Emergency Medicine; PCP Nurse Practitioner Primary Care; Referring Provider Specialist
DX: I21.11 ST elevation (STEMI) myocardial infarction involving right coronary artery (principal); N17.9 Acute kidney failure, unspecified; E11.65 Type 2 diabetes mellitus with hyperglycemia; D72.829 Elevated white blood cell count, unspecified; I10 Essential (primary) hypertension; E78.5 Hyperlipidemia, unspecified; I34.0 Nonrheumatic mitral (valve) insufficiency; I95.9 Hypotension, unspecified; Z79.84 Long term (current) use of oral hypoglycemic drugs; Z79.82 Long term (current) use of aspirin; Z79.02 Long term (current) use of antithrombotics/antiplatelets; Z95.5 Presence of coronary angioplasty implant and graft
CPT/HCPCS: 36415; 71045; 80048; 80053; 80061; 82962; 83036; 83735; 84100; 84443; 84484; 85025; 85610; 85730; 92941; 93005; 93306; 93454; 94668; 97802; 99152; 99153; 99252; 99284; J7030; A4216; C1725; C1769; C1874; C1887; C1894; C9606; G0463; J1327; Q9967

== ENCOUNTER → 2023-01-25 | Outpatient (CLI) | payer MEDICARE, SELFPAY ==
--- NOTE | 2023-01-25 12:50 | ECHOL_ITS ---
Reason For Study: CHF, Re-evaluate EF post STEMI/Stent to RCA Procedure This was a limited 2D transthoracic echocardiogram. Exam performed in department. Left Ventricle Normal LV size. Left ventricular systolic function is normal. The estimated ejection fraction is 55 %. Mid-Inferior: Hypokinetic. Infero-Basal: Akinetic. Right Ventricle Normal RV size. Normal systolic function. Mitral Valve Normal mitral valve. Mild-Moderate (1-2+) eccentric mitral valve insufficiency. Pulmonic Valve Normal pulmonic valve. Great Vessels Normal aortic root. The pulmonary artery is normal size. Pericardium/Pleural No pericardial effusion. MMode/2D Measurements & Calculations LVIDd: 4.7 cm IVSd: 1.1 cm Ao root diam: 2.8 cm LVIDs: 3.7 cm LVPWd: 1.0 cm LA dimension: 3.7 cm FS: 21.2 % SV(MOD-sp4): 42.4 ml SV(sp4-el): 43.8 ml LVAd ap4: 28.5 cm2 LVLd ap4: 7.0 cm EDV(MOD-sp4): 97.0 ml EDV(sp4-el): 98.7 ml LVAs ap4: 19.9 cm2 LVLs ap4: 6.1 cm ESV(MOD-sp4): 54.6 ml ESV(sp4-el): 54.9 ml EF(MOD-sp4): 43.7 % EF(sp4-el): 44.4 % Doppler Measurements & Calculations MR max olivier: 603.0 cm/sec MR max P.4 mmHg MR mean olivier: 454.3 cm/sec MR mean P.2 mmHg MR VTI: 237.7 cm ECHO/Echo, Limited Study Interpretation Summary Normal LV size. Left ventricular systolic function is normal. The estimated ejection fraction is 55 %. Mild-Moderate (1-2+) eccentric mitral valve insufficiency. Compared to previous study, the left ventricular systolic function has improved .. Ordering Physician: Arsen Simmons Referring Physician: Arsen Simmons Performed By: Dav Zavala RCS
== END | disposition home or self-care (01) ==
PROVIDERS: PCP Nurse Practitioner Primary Care; Referring Provider Nurse Practitioner Family; Visit Provider Nurse Practitioner Family
DX: I10 Essential (primary) hypertension (principal); E11.9 Type 2 diabetes mellitus without complications; Z95.5 Presence of coronary angioplasty implant and graft; E78.5 Hyperlipidemia, unspecified; I25.5 Ischemic cardiomyopathy
CPT/HCPCS: 93308